=== PATIENT | male | born 1985 | race Caucasian/White ===

== ENCOUNTER 2021-11-19 21:40 | Emergency (ER) | payer SELFPAY ==
[2021-11-19] MEDS ORDERED: NORFLEX 100 MG100 MG PO (23:18)
[2021-11-19] MEDS ORDERED: NAPROXEN500 MG PO (23:18)
== END 2021-11-19 23:22 | disposition home or self-care (01) ==
LOC: ER1 21:40
DX: M54.50 Low back pain, unspecified (principal); F17.220 Nicotine dependence, chewing tobacco, uncomplicated
CPT/HCPCS: 99283